=== PATIENT | female | born 1945 | race Caucasian/White ===

== ENCOUNTER 2020-11-16 06:14 | Emergency (ER) | payer MEDICARE ==
[~2020-11-16 06:14] MED LIST: AMBIEN10 MG PO; AMOX TR-K CLV1 EAC4 PO; ATIVAN0.5 MG PO; BROVANA15 MCG/2 M NEB; DUONEB 2.5-0.5M1 AMP NEB; HYDROCODON-ACE1 EAC6 PO; LEVAQUIN750 MG PO; OMEPRAZOLE40 MG PO; PREDNISONE 20MG20 MG PO; PREDNISONE50 MG PO; PULMICORT0.25 MG/2 NEB; SYNTHROID75 MCG PO; TYLENOL #31 EACH PO; VICODIN 10/3251 EACH PO
[2020-11-16 06:36] LABS: BASOPHIL 0.3 % (0-2); EOSINOPHIL 6.2 % (0-7); HCT 42.1 % (37.0-47.0); HGB 11.9 g/dl (12.5-16.0); LYMPHOCYTE 21.1 % (15-48); MCH 27.5 pg (25.0-31.0); MCHC 28.3 g/dL (32.0-36.0); MCV 97.5 fL (78.0-100.0); MONOCYTE 8.6 % (0-12); MPV 11.3 fL (6.0-9.5); NEUTROPHIL 63.2 % (41-80); NRBC 0; PLT 263 K/uL (150-400); RBC 4.32 M/uL (4.20-5.40); RDW 13.4 % (11.5-14.0); WBC 11.5 K/uL (4.0-10.5)
[2020-11-16 06:49] LABS: INR 0.96 (0.9-1.2); PROTHROMBIN TIME 12.1 SECONDS (11.4-13.6)
[2020-11-16 06:56] LABS: ALBUMIN 3.3 g/dL (3.4-5.0); BILIRUBIN - TOTAL 0.1 mg/dL (0.2-1.0); BUN/CREAT RATIO (CALC) 17.3 RATIO; CREATININE 0.52 mg/dL (0.51-0.95); GLOBULIN (CALCULATION) 4.3 g/dL; TOTAL PROTEIN 7.6 g/dL (6.4-8.2)
[2020-11-16 07:05] LABS: PRO-BNP 165 pg/mL (<450)
[2020-11-16 07:06] LABS: LACTIC ACID 0.6 mmol/L (0.4-1.9)
[2020-11-16 07:25] LABS: BILIRUBIN NEGATIVE (NEGATIVE); BLOOD 1+ Ery/uL (NEGATIVE); CLARITY CLEAR (CLEAR); COLOR YELLOW (YELLOW); GLUCOSE (U) NORMAL (NORMAL); LEUKOCYTES NEGATIVE Leu/uL (NEGATIVE); NITRITE NEGATIVE (NEGATIVE); PROTEIN NEGATIVE (NEGATIVE); UROBILINOGEN 0.2 mg/dL (0.2-1.0)
[2020-11-16] MEDS ORDERED: AUGMENTIN 875-1 EACH PO ×2 (11:22→11:23)
[2020-11-16] MEDS ORDERED: AZITHROMYCIN250 MG PO ×2 (11:22→11:23)
[2020-11-16] MEDS ORDERED: PREDNISONE 20MG20 MG PO (11:22)
[2020-11-16] MEDS ORDERED: PREDNISONE 10MG10 MG PO (11:23)
== END 2020-11-16 13:00 | disposition home or self-care (01) ==
LOC: FER 06:14 → FICU 09:39 → FER 09:39
PROVIDERS: Emergency Medicine
DX: J96.92 Respiratory failure, unspecified with hypercapnia (principal); J44.1 Chronic obstructive pulmonary disease with (acute) exacerbation; Z87.891 Personal history of nicotine dependence; Z20.822 Contact with and (suspected) exposure to COVID-19
CPT/HCPCS: 36415; 36600; 70450; 71045; 80053; 81001; 82803; 83605; 83880; 84484; 85025; 85610; 87040; 93005; 94640; 94660; 94664; 94760; J2543; J2930; J7030; U0002